=== PATIENT | male | born 1995 | race Caucasian/White ===

== ENCOUNTER → 2019-05-19 | Emergency (ER) | payer OTHER ==
[~2019-05-19] VITALS: Ht 172.7 cm; Wt 63.5 kg
== END | disposition home or self-care (01) ==
LOC: ER 21:23
DX: S51.822A Laceration with foreign body of left forearm, initial encounter (principal); W25.XXXA Contact with sharp glass, initial encounter; Y93.89 Activity, other specified; Y92.69 Other specified industrial and construction area as the place of occurrence of the external cause; Y99.8 Other external cause status